=== PATIENT | male | born 1965 | race Hispanic/Latino ===

== ENCOUNTER 2016-11-11 20:05 | Emergency (ER) | payer BC, OTHER ==
[2016-11-11 20:05] VITALS: BMI 25.9
--- NOTE | 2016-11-11 20:43 | C.PDOC ---
History Of Present Illness 51 y/o male, history of falling backward, presents to ED with complaint of falling back, hitting his head, with +LOC. Patient also reports having seizure at home. Patient states currently has severe headache. Sent to ER by PMD. Denies nausea, vomiting, visual changes, or other associated symptoms. Chief Complaint (Nursing): Seizure History Per: Patient History/Exam Limitations: no limitations Recent Seizure Activity Began: Just Before Arrival Quality Of Seizure: Generalized Precipitating Factor(s): None Post-ictal Period: No Past Medical History Reviewed: Historical Data, Nursing Documentation, Vital Signs Vital Signs: Last Vital Signs Temp 98.5 F 11/11/16 20:36 Pulse 72 11/11/16 20:36 Resp 16 11/11/16 20:36 BP 130/78 11/11/16 20:36 Pulse Ox 97 11/11/16 20:36 - Medical History PMH: Back Problems (Herniated L5 & L6), Gastritis - [facility] Procedures APPLICATION OF SPLINT (08/11/14) OP RED-INT FIX TIB/FIBUL (08/18/14) Family History: States: Unknown Family Hx - Social History Hx Tobacco Use: Yes Hx Alcohol Use: No - Immunization History Hx Tetanus Toxoid Vaccination: No Hx Influenza Vaccination: Yes Hx Pneumococcal Vaccination: No Review Of Systems Except As Marked, All Systems Reviewed And Found Negative. Constitutional: Negative for: Fever, Chills Cardiovascular: Negative for: Chest Pain, Palpitations Respiratory: Negative for: Shortness of Breath Gastrointestinal: Negative for: Nausea, Vomiting Skin: Negative for: Rash Neurological: Positive for: Headache. Negative for: Weakness, Numbness, Dizziness Physical Exam - Physical Exam Appears: Non-toxic, No Acute Distress Skin: Warm, Dry Head: Normacephalic, No Tenderness, No Swelling, No Abrasion, No Laceration Eye(s): bilateral: Normal Inspection Oral Mucosa: Moist Neck: No Midline Cervical Tenderness, No Step Off Deformity, Supple Chest: Symmetrical Cardiovascular: Rhythm Regular Respiratory: Normal Breath Sounds, No Rales, No Rhonchi, No Wheezing Gastrointestinal/Abdominal: Soft, No Tenderness Back: Normal Inspection Extremity: Normal ROM, Capillary Refill (< 2 sec. ) Neurological/Psych: Oriented x3, Normal Speech, Normal Cognition ED Course And Treatment - Laboratory Results Result Diagrams: 11/11/16 20:40 11/11/16 21:05 Progress Note: CT Head, EKG, bloodwork. Toradol and fluids given. Disposition Counseled Patient/Family Regarding: Diagnosis - Disposition Disposition: AGAINST MEDICAL ADVICE Disposition Time: 22:23 Condition: STABLE - POA Present On Arrival: None - Clinical Impression Clinical Impression: Head injury, Cerebral concussion, Seizure - Scribe Statement The provider has reviewed the documentation as recorded by the Denny Hunt Provider Scribe Attestation: All medical record entries made by the Denny were at my direction and personally dictated by me. I have reviewed the chart and agree that the record accurately reflects my personal performance of the history, physical exam, medical decision making, and the department course for this patient. I have also personally directed, reviewed, and agree with the discharge instructions and disposition.
[2016-11-11 20:44] VITALS: TEMP 98.5
[2016-11-11 20:55] LABS: BASO # 0.1 K/uL (0.0-0.2); BASO % 0.9 % (0.0-2.0); EOS # 0.1 K/uL (0.0-0.7); EOS % 1.5 % (0.0-4.0); HEMATOCRIT 45.1 % (35.0-51.0); LYMPH # 1.7 K/uL (1.0-4.3); LYMPH % 25.6 % (20.0-40.0); MEAN CORPUSCULAR HEMOGLOBIN 32.1 pg (27.0-31.0); MEAN CORPUSCULAR HGB CONC 34.6 g/dL (33.0-37.0); MEAN PLATELET VOLUME 9.3 fL (7.2-11.7); MONO # 0.4 K/uL (0.0-0.8); MONO % 6.1 % (0.0-10.0); RED CELL DISTRIBUTION WIDTH 13.3 % (11.5-14.5); WHITE BLOOD COUNT 6.7 K/uL (4.8-10.8)
[2016-11-11 21:03] LABS: CHLORIDE 103 mmol/L (98-107); SODIUM 139 mmol/L (132-148)
[2016-11-11 21:04] LABS: POTASSIUM 3.7 mmol/L (3.6-5.2)
[2016-11-11 21:06] LABS: ALB/GLOB RATIO 1.6 (1.0-2.1); ALKALINE PHOSPHATASE 70 U/L (38-126); AST/SGOT 22 U/L (17-59); BILIRUBIN,TOTAL 0.5 mg/dL (0.2-1.3); BLOOD UREA NITROGEN 14 mg/dL (9-20); CARBON DIOXIDE 24 mmol/L (22-30); GFR AFRICAN-AMERICAN > 60; GLUCOSE,RANDOM 99 mg/dL (75-110); TOTAL PROTEIN 6.7 g/dL (6.3-8.3)
[2016-11-11 21:07] LABS: ALT/SGPT 29 U/L (21-72); CALCIUM 8.7 mg/dl (8.6-10.4)
[2016-11-11 22:39] VITALS: BP 132/71; PULSE 75; RESP 18; O2SAT 99
--- NOTE | 2016-11-12 07:48 | CT ---
PROCEDURE: CT HEAD WITHOUT CONTRAST. HISTORY: Headache COMPARISON: None available. TECHNIQUE: Axial computed tomography images were obtained through the head/brain without intravenous contrast. Radiation dose: Total exam DLP = 878 mGy-cm. This CT exam was performed using one or more of the following dose reduction techniques: Automated exposure control, adjustment of the mA and/or kV according to patient size, and/or use of iterative reconstruction technique. FINDINGS: HEMORRHAGE: No intracranial hemorrhage. BRAIN: No mass effect or edema. No atrophy or chronic microvascular ischemic changes. VENTRICLES: Unremarkable. No hydrocephalus. CALVARIUM: Unremarkable. PARANASAL SINUSES: Unremarkable as visualized. No significant inflammatory changes. MASTOID AIR CELLS: Unremarkable as visualized. No inflammatory changes. OTHER FINDINGS: None. IMPRESSION: No acute intracranial abnormality. If focal neurologic deficit persists, consider MRI. These findings were preliminarily reported at 9:07 p.m. on 11/11/[address] Ryley Camargo from [facility].
--- NOTE | 2016-11-13 12:08 | CARD ---
APPROVED REPORT EKG Measurement Heart [id number] <Conclusion> Sinus rhythm with premature supraventricular complexes Otherwise normal ECG
== END 2016-11-11 22:30 | disposition left against medical advice (07) ==
LOC: C.ER 20:05
DX: S06.0X9A Concussion with loss of consciousness of unspecified duration, initial encounter (principal); W18.39XA Other fall on same level, initial encounter; Y92.009 Unspecified place in unspecified non-institutional (private) residence as the place of occurrence of the external cause; R56.9 Unspecified convulsions
CPT/HCPCS: 70450; 80053; 85025; 93005; 96374; 99284; J1885